=== PATIENT | female | born 1955 | race Caucasian/White ===

== ENCOUNTER → 2017-10-26 09:42 | Outpatient (CLI) | payer OTHER, SELFPAY ==
--- NOTE | 2017-10-26 09:47 | BI_ITS ---
MAMMOGRAPHY - BILATERAL SCREENING REASON FOR EXAM: Female, 62 years old. Routine annual screening examination. PERTINENT HISTORY: Sister with breast cancer. Mother with breast cancer. History of prior bilateral breast reduction surgery. TECHNIQUE: Digital bilateral breast kimo (3D mammographic acquisition) in the CC and MLO projections. 2-D mediolateral oblique (MLO) and craniocaudad (CC) views of both breasts were obtained. CAD: Full Field Digital Mammography with Computer Added Detection was performed. COMPARISON: Comparison is made with prior study dated May 30, 2016 and July 05, 2015. FINDINGS: Breast Composition: There are scattered areas of fibroglandular density. There are no dominant masses or suspicious calcifications. Since prior study, the patient underwent bilateral breast reduction surgery with resultant postoperative changes. No other significant abnormalities are identified. BI/SCREENING MAMM (CAD), BILAT IMPRESSION: Stable bilateral screening mammogram. Yearly follow-up mammogram recommended. (A) ASSESSMENT CATEGORY: BIRADS Category 2: Benign. A letter regarding these results will be sent to the patient by the facility within 30 days. Approximately 10% of breast cancers are not detected by mammography. A normal mammogram should not delay biopsy of a clinically suspicious abnormality. [id number] Electronically Signed: Miguel A Randle MD at 12:59 EDT Tel [phone], Service support ,
== END ==
PROVIDERS: Family Provider Family Medicine; PCP Family Medicine; Visit Provider Obstetrics & Gynecology
DX: Z12.31 Encounter for screening mammogram for malignant neoplasm of breast (principal)
CPT/HCPCS: 77063; 77067

== ENCOUNTER → 2018-11-13 08:10 | Outpatient (CLI) | payer OTHER, SELFPAY ==
--- NOTE | 2018-11-13 08:14 | BI_ITS ---
MAMMOGRAPHY - BILATERAL SCREENING REASON FOR EXAM: Female, 63 years old. Routine annual screening examination. PERTINENT HISTORY: Sister with breast cancer. Mother with breast cancer. History of bilateral breast reduction surgery as well as bilateral stereotactic breast biopsies. TECHNIQUE: Digital bilateral breast delmer (3D mammographic acquisition) in the CC and MLO projections. 2-D mediolateral oblique (MLO) and craniocaudad (CC) views of both breasts were obtained. CAD: Full Field Digital Mammography with Computer Added Detection was performed. COMPARISON: Comparison is made with prior study dated October 26, 2017 and May 30, 2016. FINDINGS: Breast Composition: There are scattered areas of fibroglandular density. There are no dominant masses or suspicious calcifications. Rim-like calcifications are seen in the retroareolar region of the right breast. This most likely represents postsurgical fatty necrosis. Focal rim-like calcification is also seen in the retroareolar region of the left breast. No other significant abnormalities are identified. BI/SCREEN MAMM (CAD) W/DELMER BILAT IMPRESSION: Stable bilateral screening mammogram. Yearly follow-up mammogram recommended. (A) ASSESSMENT CATEGORY: BIRADS Category 2: Benign. A letter regarding these results will be sent to the patient by the facility within 30 days. Approximately 10% of breast cancers are not detected by mammography. A normal mammogram should not delay biopsy of a clinically suspicious abnormality. [id number] Electronically Signed: Miguel A Randle, at 9:07 EDT , Service support ,
== END ==
PROVIDERS: Referring Provider Obstetrics & Gynecology; Visit Provider Obstetrics & Gynecology
DX: Z12.31 Encounter for screening mammogram for malignant neoplasm of breast (principal)
CPT/HCPCS: 77063; 77067

== ENCOUNTER → 2019-11-18 07:23 | Outpatient (CLI) | payer OTHER, SELFPAY ==
--- NOTE | 2019-11-18 07:25 | BI_ITS ---
MAMMOGRAPHY - BILATERAL SCREENING REASON FOR EXAM: Female, 64 years old. Routine annual screening examination. PERTINENT HISTORY: Sister with breast cancer. Mother with breast cancer. Prior bilateral breast reduction surgery and bilateral stereotactic breast biopsy TECHNIQUE: Digital bilateral breast delmer (3D mammographic acquisition) in the CC and MLO projections. 2-D mediolateral oblique (MLO) and craniocaudad (CC) views of both breasts were obtained. CAD: Full Field Digital Mammography with Computer Added Detection was performed. COMPARISON: Comparison is made with prior study dated November 13, 2018 and October 26, 2017. FINDINGS: Breast Composition: There are scattered areas of fibroglandular density. There are no dominant masses or suspicious calcifications. Stable rim-like calcification density seen in the retroareolar region of the right breast. This most likely represents postoperative changes with fatty necrosis. Tiny calcific nodular density also seen in the retroareolar region of the left breast. Annual focus of calcification is seen in the upper deep slightly lateral portion of the right breast. The patient will be recalled for additional views including compression magnification spot views. No other significant abnormalities are identified. BI/SCREEN MAMM (CAD) W/DELMER BILAT IMPRESSION: Essentially stable mammograms except for a focus of the microcalcifications in the slightly upper deep lateral portion of the right breast. The patient will be recalled for additional views. Recall Side: Right Breast ASSESSMENT CATEGORY: BIRADS Category 0: Incomplete. Need additional imaging evaluation. A letter regarding these results will be sent to the patient by the facility within 30 days. Approximately 10% of breast cancers are not detected by mammography. A normal mammogram should not delay biopsy of a clinically suspicious abnormality. [id number] Electronically Signed: Miguel A Randle, at 9:27 EDT , Service support ,
== END ==
PROVIDERS: PCP Nurse Practitioner Primary Care; Referring Provider Obstetrics & Gynecology; Visit Provider Obstetrics & Gynecology
DX: Z12.31 Encounter for screening mammogram for malignant neoplasm of breast (principal)
CPT/HCPCS: 77063; 77067

== ENCOUNTER → 2019-11-19 08:47 | Outpatient (CLI) | payer OTHER, SELFPAY ==
--- NOTE | 2019-11-19 08:51 | BI_ITS ---
MAMMOGRAPHY - UNILATERAL DIAGNOSTIC: RIGHT BREAST REASON FOR EXAM: Female, 64 years old. Abnormal screening mammograms for calcifications. PERTINENT HISTORY: Sister with breast cancer. Mother with breast cancer. TECHNIQUE: Magnification spot views of the right breast were painted. CAD: Full Field Digital Mammography with Computer Added Detection was performed. COMPARISON: Comparison is made with prior study dated November 18, 2019. FINDINGS: Breast Composition: There are scattered areas of fibroglandular density. The calcifications are once again seen in the upper deep slightly lateral portion of the right breast. A biopsy is recommended for further evaluation. No other significant abnormalities are identified. BI/DIAG MAMM W/CAD, UNILAT IMPRESSION: Persistent microcalcifications as described. A biopsy recommended. ASSESSMENT CATEGORY: BIRADS Category 0: Incomplete. Need additional imaging evaluation. A letter regarding these results will be sent to the patient by the facility within 30 days. Approximately 10% of breast cancers are not detected by mammography. A normal mammogram should not delay biopsy of a clinically suspicious abnormality. Electronically Signed: Miguel A Randle, at 10:32 EDT , Service support ,
== END ==
PROVIDERS: PCP Nurse Practitioner Primary Care; Referring Provider Obstetrics & Gynecology; Visit Provider Obstetrics & Gynecology
DX: R92.8 Other abnormal and inconclusive findings on diagnostic imaging of breast (principal)
CPT/HCPCS: 77065

== ENCOUNTER → 2020-01-06 09:24 | Outpatient (CLI) | payer OTHER, SELFPAY ==
--- NOTE | 2020-01-05 18:23 | HP.PCM_ITS ---
History and Physical Date of Admission: 01/06/20 Ranjana Garrett 1955 ? ? REFERRING PHYSICIAN: Marc Cagle MD ? CHIEF COMPLAINT: Mammogram Abnormality ? HPI: The patient is a 64 year old female with abnormal right breast mammograms. She denies palpable breast masses. Denies nipple discharge. Had bilateral breast reduction about 3 years ago. Had previous right and left needle core biopsies by US that were benign. Mother dx'd with breast cancer in her 60s, also sister with breast cancer, no ovarian cancer known in family. BRCA status in family unknown. ? Mammograms 11/17- Essentially stable mammograms except for a focus of the microcalcifications in the slightly upper deep lateral portion of the right breast. The patient will be recalled for additional views. IMPRESSION: Persistent microcalcifications as described. A biopsy recommended. ? ? PAST MEDICAL HISTORY: Elevated cholesterol ? ? PAST SURGICAL HISTORY Procedure Laterality Date ? SECTION HX ? 1977, 1979, 1981 ? KNEE SCOPE,AID ANT CRUCIATE REPAIR ? 1995 ? PAST SURGICAL HISTORY OF ? ? ? ACL repair left knee ? TOTAL ABDOM HYSTERECTOMY ? 2000 Bilateral breast reduction [place] teeth surgery Breast biopsy, needle core - right Breast biopsy, needle core - left ? ? Current Outpatient Medications Medication Sig ? pravastatin (PRAVACHOL) 20 mg tablet ? ? ? ALLERGIES: Sulfa (Sulfonamide Antibiotics) ? PERSONAL HISTORY: Social History ? Tobacco Use ? Smoking status: Never Smoker ? Smokeless tobacco: Never Used Substance Use Topics ? Alcohol use: Yes ? ? Alcohol/week: 1.7 standard drinks ? Drug use: No ? FAMILY HISTORY Problem Relation Age of Onset ? Breast Cancer Mother ? ? Dx. @ 56 @ 62 yrs from breast cancer ? ? REVIEW OF SYSTEMS: General - denies fevers, denies anorexia, denies weight loss Cardiovascular - denies chest pain, denies history of HI Pulmonary - denies shortness of breath, denies coughing up blood Gastrointestinal - denies abdominal pain, denies hematemesis, denies blood in stools Neurological - denies seizures, denies chronic numbness/weakness of extremities, denies chronic headaches Genitourinary - denies burning with urination, denies blood in urine Hematological - denies spontaneous/prolonged bleeding Skin - denies nonhealing skin wounds Musculoskeletal - no new muscle/bone pain Endocrine - denies diabetes, no thyroid problems Psychological ? denies hallucinations Obstetrical - menarche onset in 6th grade, , first at age 22, breast feeding 25 m, surgical menopause early 50s, denies any hormones use ? PHYSICAL EXAMINATION: General: The patient is 64 year old female, well nourished, well hydrated in no acute distress. The patient is oriented to time, place, and person. VITALS: Blood pressure 122/58, pulse 104, temperature 36.7 ?C (98 ?F), temperature source Temporal, resp. rate 18, weight 81.2 kg (179 lb), SpO2 96 %. There is no height or weight on file to calculate BMI. Head ? Normocephalic. EOM intact with sclera clear and no icterus noted. Wearing glasses. Mouth with mucus membranes moist. Neck - supple with no jugular venous distention noted. Trachea is midline. No carotid bruits noted. No thyroid enlargement or thyroid nodules detected. No masses noted. Chest/breast ? no asymmetry of breasts noted, no suspicious skin lesions noted, no nipple discharge and both nipples everted, no breast masses noted Lungs ? clear to auscultation. Normal breath sounds. No rales/rhonchi/wheezing noted. No labored breathing noted, such as retractions. No cough heard. Heart ? normal S1 and S2 auscultated. No rubs/clicks/murmurs noted. Regular rate. Abdomen ? soft and benign. Normal bowel sounds No abdominal bruits noted. Difficult to determine if any masses or organomegaly due to body habitus. Extremities ? no calf tenderness noted. No pitting edema noted. Skin ? normal skin integrity. Lymph ? no cervical adenopathy detected, no supraclavicular adenopathy detected, no axillary adenopathy detected Neurological ? gait normal, no focal deficits noted Psych ? calm and appropriate RADIOLOGIC STUDIES: As Noted ? ? IMPRESSION: abnormal right breast mammograms ? PLAN: I have discussed the above with the patient. I have reviewed the breast radiographs with the patient and pointed out the abnormalities discussed in the report. I have offered right breast stereotactic breast biopsy. I have explained the procedure to the patient. I have counseled the patient as to the risks of the procedure, including but not limited to: infection, bleeding, injury to any blood vessels/nerves, scar tissue, wound infections, complications of anesthesia, etc. ? the patient understands. The patient wishes to proceed. I have answered all questions to the patient?s satisfaction and the patient has no further questions. ? . Diagnoses: (R92.8) Abnormal mammogram (primary encounter diagnosis) Return to Clinic: The patient is instructed to follow-up with me after the procedure. ? ? ? Aliad Barr MD
--- NOTE | 2020-01-06 10:05 | BRBX_PTH ---
PATIENT: INA ZHANG LOC: [facility] U#:[id number] AGE/SX: 69/F ROOM: RE01/06/[address]: Dr. Alida Barr MD : 1955 BED: DIS: SPEC #: [id number] RECD: 01/06/20 10:32 STATUS: LITO MANGO #: [id number] LIAM: 01/06/20 10:[address]: Alida Barr DEPT: SURGICAL PATHOLOGY RECD BY: Harris Alberto ENTERED: 01/06/20 10:58 SP TYPE: BREAST BX OTHR DR: Love Carrillo, FIRST HELPER-C Tissues: Right breast, NOS Procedures: Surgery Specimen Level IV HEADER OPERATION: Right breast stereotactic needle core biopsy PRE-OP DIAGNOSIS: Right UOQ calcifications TISSUE SUBMITTED: Right breast tissue ISCHEMIC TIME: 2 minutes FIXATION TIME: 9.5 hours MICROSCOPIC DIAGNOSIS Right breast, upper outer quadrant calcifications, stereotactic needle core biopsy: Fibrocystic changes and focal florid intraductal hyperplasia without atypia. Focal fat necrosis, chronic inflammation, histiocytic reaction and dystrophic calcification. Negative for malignancy. See comment. JENNA:franco 01/07/20 COMMENT Calcifications are noted only in the area of inflammation. Correlation with clinical, radiologic findings and appropriate follow up are necessary. MICROSCOPIC DESCRIPTION Slides are reviewed. GROSS DESCRIPTION Received in fixative is one container labeled with the patient name and designated right breast. The specimen consists of multiple elongated fragments of howell-yellow fibroadipose tissue that in aggregate measure 5 x 3 x 0.3 cm. The entire specimen is submitted in two cassettes. / JENNA:franco 01/06/20 TC:5 CPT: 68952
--- NOTE | 2020-01-06 11:20 | PCM.OPRPT ---
Report of Operation Date of Procedure: 01/06/20 Pre-Operative Diagnosis: abnormal calcifications on right breast mammograms Post-Operative Diagnosis: same Surgery/Procedure Performed:: right stereotactic breast biopsy Description of Surgical Findings:: abnormal calcifications seen on right breast mammograms Type of Anesthesia:: Local - 1% xylocaine Specimen's removed: right breast tissue Estimated Blood Loss (mL): minimal Fluids Replaced: none Description of Procedure: After informed consent was given, the patient was brought into the Breast Biopsy suite. Appropriate time out protocol was followed. The patient was placed in the prone position on the stereotactic biopsy table. The patient?s right breast was then placed in the opening at the head of the biopsy table. A health program specialist compression mammogram was then obtained in the lateral view. The suspicious radiological lesion was thus identified. Stereo pictures of the lesion were then taken for XYZ coordinates. The Mammotome biopsy stylus was then positioned where it would be entering into the patient?s breast. The skin at this site was then cleansed with a surgical skin preparation. The skin and subcutaneous tissues at this site were then infiltrated with 1% xylocaine. A small skin incision was made with an 11 blade scalpel. The biopsy stylus was then positioned into the patient?s breast at the proper coordinates of depth. Using the Mammotome vacuum-assist device, several core samples of breast tissue were obtained. A specimen mammogram was the obtained. It revealed that the abnormal calcifications were within the specimen. I reviewed this personally and concluded that the tissue sampling was adequate. A hemostatic marker clip was then placed into the biopsy cavity and a health program specialist film revealed that it was properly deployed. The patient was then placed in the supine position and pressure was applied to the breast until no active bleeding was noted. Steristrips were applied to reapproximate the skin. A unilateral mammogram in the CC and MLO view were then taken which revealed that the marker clip was in the same area as the previous suspicious lesion. The patient tolerated the procedure well and was discharged from the Breast Biopsy suite in good condition. - Complications none noted
== END ==
PROVIDERS: PCP Nurse Practitioner Primary Care; Visit Provider Surgery
DX: R92.8 Other abnormal and inconclusive findings on diagnostic imaging of breast (principal)
CPT/HCPCS: 19081; 88305; J7050; A4648

== ENCOUNTER → 2021-01-04 12:28 | Outpatient (CLI) | payer MEDICARE, OTHER, SELFPAY ==
--- NOTE | 2021-01-04 12:32 | BI_ITS ---
MAMMOGRAPHY - BILATERAL SCREENING 3-D TOMOSYNTHESIS REASON FOR EXAM: Female, 65 years old. SCREENING PERTINENT HISTORY: No significant family history. TECHNIQUE: 2-D mammograms and 3-D Tomosynthesis of the breast (s) were performed. CAD was performed. COMPARISON: 11/18/2019 FINDINGS: The breast composition is composed of scattered fibroglandular density. Scattered benign calcifications are seen. No dense spiculated masses or suspicious microcalcifications are identified. No architectural distortion is identified. There is no skin thickening or retraction. There has been no significant change since the prior study. BI/SCRN MAMM (CAD)W/DELMER BILAT IMPRESSION: No mammographic signs of malignancy. Routine yearly mammograms recommended. ASSESSMENT CATEGORY: BIRADS Category 1: Negative. A letter regarding these results will be sent to the patient by the facility within 30 days. FOLLOW UP RECOMMENDATION: Yearly follow up mammogram recommended. (A) Approximately 10% of breast cancers are not detected by mammography. A normal mammogram should not delay biopsy of a clinically suspicious abnormality. Electronically Signed: Andrew Yi MD at 17:14 EDT Tel , Service support ,
== END ==
PROVIDERS: PCP Nurse Practitioner Primary Care; Referring Provider Obstetrics & Gynecology; Visit Provider Obstetrics & Gynecology
DX: Z12.31 Encounter for screening mammogram for malignant neoplasm of breast (principal)
CPT/HCPCS: 77063; 77067

== ENCOUNTER → 2022-04-18 | Outpatient (CLI) | payer MEDICARE, OTHER, SELFPAY ==
--- NOTE | 2022-04-18 09:15 | BI_ITS ---
MAMMOGRAPHY - BILATERAL SCREENING REASON FOR EXAM: Female, 66 years old. Routine annual screening examination. PERTINENT HISTORY: Sister with breast cancer. Mother with breast cancer. Prior bilateral breast reduction surgery and prior bilateral stereotactic breast biopsies. TECHNIQUE: Digital bilateral breast delmer (3D mammographic acquisition) in the CC and MLO projections. 2-D mediolateral oblique (MLO) and craniocaudad (CC) views of both breasts were obtained. CAD: Full Field Digital Mammography with Computer Added Detection was performed. COMPARISON: Comparison is made with prior study dated 01/04/2021 and 11/19/2019. FINDINGS: Breast Composition: The breasts are almost entirely fatty. There are no dominant masses or suspicious calcifications. Stable dystrophic calcification in the right axillary region. A tissue clip marker is seen in the slightly upper lateral aspect of the right breast. No other significant abnormalities are identified. There has been no significant change since the prior study. BI/SCRN MAMM (CAD)W/DELMER BILAT IMPRESSION: Stable bilateral screening mammogram. Yearly follow-up mammogram recommended. (A) ASSESSMENT CATEGORY: BIRADS Category 2: Benign. A letter regarding these results will be sent to the patient by the facility within 30 days. Approximately 10% of breast cancers are not detected by mammography. A normal mammogram should not delay biopsy of a clinically suspicious abnormality. [id number] Electronically Signed: Miguel A Randle MD at 10:39 EST ,
--- NOTE | 2022-04-18 09:24 | BD_ITS ---
STUDY: DUAL ENERGY X-RAY ABSORPTIOMETRY / DXA REASON FOR EXAM: Female, 66 years old. [id number] TECHNIQUE: Bone Mineral Density (BMD) measurements of lumbar spine and bilateral hips were obtained. COMPARISON: None. FINDINGS: Lumbar Spine (L1-L4): g/cm2 (0.804) / T-score (-2.2) / Z-score (-0.3) Findings are suggestive of osteopenia with a high fracture risk. Left Femur Total: g/cm2 (0.818) / T-score (-1.0) / Z-score (0.3) Left Femoral Neck: g/cm2 (0.772) / T-score (-0.7) / Z-score (0.9) Right Femur Total: g/cm2 (0.827) / T-score (-0.9) / Z-score (0.4) Right Femoral Neck: g/cm2 (0.817) / T-score (-0.3) / Z-score (1.3) BD/Dexa Bone Density Study IMPRESSION: The patient is considered osteopenic as outlined below according to World Jefe Organization (WHO) criteria with a high fracture risk. Reference Information: The T-score is the number of standard deviations above or below the standard which is normal for young adults at their peak bone mineral density. The World Health Organization (WHO) interprets the T-scores as follows: Above -1 Normal bone density Between -1 and -2.5 Osteopenia Equal to / or below -2.5 Osteoporosis As a practical clinical guideline, osteopenia may be graded as follows: Mild -1 through -1.5 Moderate -1.6 through -2.0 Severe -2.1 through -2.4 The Z-score is the number of standard deviations above or below age-matched controls. A Z-score of less than -1.5 would be considered abnormal. References: 1. NIH Osteoporosis and Related Bone Diseases www osteo.org 2. International Society for Clinical Densitometry www iscd.org 3. National Osteoporosis Foundation www nof.org Electronically Signed: Miguel A Randle MD at 12:15 EST ,
== END | disposition home or self-care (01) ==
LOC: OPBD 09:13
PROVIDERS: PCP Nurse Practitioner Primary Care; Referring Provider Nurse Practitioner Primary Care; Visit Provider Nurse Practitioner Primary Care
DX: M81.0 Age-related osteoporosis without current pathological fracture (principal); Z12.31 Encounter for screening mammogram for malignant neoplasm of breast
CPT/HCPCS: 77063; 77067; 77080

== ENCOUNTER → 2023-06-08 | Outpatient (CLI) | payer MEDICARE, OTHER, SELFPAY ==
--- NOTE | 2023-06-08 12:04 | BI_ITS ---
MAMMOGRAPHY - BILATERAL SCREENING REASON FOR EXAM: Female, 68 years old. Routine annual screening examination. PERTINENT HISTORY: Sister with breast cancer. Mother with breast cancer. History of prior bilateral breast reduction surgery as well as bilateral stereotactic breast biopsies. TECHNIQUE: Digital bilateral breast delmer (3D mammographic acquisition) in the CC and MLO projections. 2-D mediolateral oblique (MLO) and craniocaudad (CC) views of both breasts were obtained. CAD: Full Field Digital Mammography with Computer Added Detection was performed. COMPARISON: Comparison is made with prior study dated April 18, 2022 and January 04, 2021. FINDINGS: Breast Composition: The breasts are almost entirely fatty. There are no dominant masses or suspicious calcifications. Stable dystrophic calcification in the right periareolar region. A tissue clip marker from prior biopsy is seen in the upper lateral anterior portion of the right breast. No other significant abnormalities are identified. There has been no significant change since the prior study. BI/SCRN MAMM (CAD)W/DELMER BILAT IMPRESSION: Stable bilateral screening mammogram. Yearly follow-up mammogram recommended. (A) ASSESSMENT CATEGORY: BIRADS Category 2: Benign. A letter regarding these results will be sent to the patient by the facility within 30 days. Approximately 10% of breast cancers are not detected by mammography. A normal mammogram should not delay biopsy of a clinically suspicious abnormality. [id number] Electronically Signed: Miguel A Randle MD at 13:44 EST ,
--- OUTSIDE RECORDS SUMMARY | 2023-06-08 15:18 | XMS RPT_ITS | CCD ---
Author Name Unknown Address [address] [facility] [address] [place] [address] Organization [facility] Care Team Providers Care Drill Setup Operator Name Role Phone RAFAL NINA, DR WHIT Haq Primary Care Physician VIN MEDICAL EQUIPMENT REPAIR TECHNICIAN-DAMPER FITTER, DIYA S Primary Care Unava ilable [facility]OCK [employer]QUIP[employer] REPAIR TECHNICIAN-DAMPER FITTER, ELÍAS Attending Unavailabl e VIN MEDICAL EQUIPMENT REPAIR TECHNICIAN-DAMPER FITTER, DIYA S Primary Care Unava ilable [facility] [employer] EQUIPMENT REPAIR TECHNICIAN-DAMPER FITTER, ELÍAS Attending Unavailabl e VIN MEDICAL EQUIPMENT REPAIR TECHNICIAN-DAMPER FITTER, DIYA S Primary Care Physicia n Allergies Allergy Classification Reported Allergen(s) Allergy Type Date of Onset Reaction(s) Facility (1 source) Sulfonamides (Antibiotic); Translations: [sulfa drugs] Drug allergy Eruption of skin (disorder) [facility] (1 source) Sulfonamide; Translations: [sulfa drugs] Drug allergy Eruption of skin (disorder) [facility] Medications Current Medications Medication Drug Class(es) Dates Sig (Normalized) Sig (Original) Advil PM Liqui-Gels 25 mg-200 mg oral capsule (1 source) Start: 01-12-2022 take 1 capsule by mouth once daily at bedtime as needed Advil PM Liqui-Gels 25 mg-200 mg oral capsule Dose = 2 cap(s), Oral, qHS, PRN for insomnia, # 16 cap(s), 0 Refill(s) Start Date: 01/12/22 Status: Ordered biotin 5 mg oral capsule (1 source) Start: 01-12-2022 biotin 5000 mcg oral caps 0 Refill(s) Start Date: 01/12/22 Status: Ordered ciprofloxacin 500 mg oral tablet (1 source) Quinolone Antimicrobial Start: 06-01-2023 End: 06-11-2023 ciprofloxacin 500 mg oral tablet Dose : 500 mg = 1 tab(s), Oral, q12h, for diverticulitis, X 10 day(s), # 20 tab(s), 0 Refill(s), 06/11/23 3:31:00 PM EST, Pharmacy: [facility], 157, cm, 05/31/23 15:05:00 EST, Height, 82, kg, 05/31/23 15:05:00 EST, Dosing Weight Start Date: 06/01/23 Stop Date: 06/11/23 Status: Ordered 2 ml dupilumab 150 mg/ml prefilled syringe (2 sources) Interleukin-4 Receptor alpha Antagonist Start: 01-12-2022 Dupixent 300 mg/2 mL subcutaneous solution 2 times a month, 0 Refill(s) Start Date: 01/12/22 Status: Ordered fluticasone propionate 0.05 mg/actuat metered dose nasal spray (1 source) Corticosteroid Start: 06-06-2022 take 1 dose nasal route twice daily Flonase 50 mcg/inh nasal spray Dose = 2 spray(s), Nostril, each, BID, # 16 gram(s), 0 Refill(s), Pharmacy: [facility], Acute sinusitis, 157, cm, 06/06/22 8:37:00 EST, Height Start Date: 06/06/22 Status: Ordered metroNIDAZOLE 500 mg oral tablet (1 source) Nitroimidazole Antimicrobial Start: 06-01-2023 End: 06-11-2023 metroNIDAZOLE 500 mg oral tablet Dose : 500 mg = 1 tab(s), Oral, q8h, for diverticulitis, X 10 day(s), # 30 tab(s), 0 Refill(s), 06/11/23 3:29:00 PM EST, Pharmacy: [facility], 157, cm, 05/31/23 15:05:00 EST, Height, 82, kg, 05/31/23 15:05:00 EST, Dosing Weight Start Date: 06/01/23 Stop Date: 06/11/23 Status: Ordered Vitamin D3 (1 source) Start: 01-12-2022 Vitamin D3 qDay, 25mcg daily, 0 Refill(s) Start Date: 01/12/22 Status: Ordered Problems Problem Classification Problem Date Documented Da te Episodic/Chronic Malaise and fatigue (2 sources) Fatigue 01-12-2022 Episodic Other lower respiratory disease (2 sources) Snoring 01-12-2022 Episodic Other screening for suspected conditions (not mental disorders or infectious disease) (2 sources) Mammography abnormal 11-25-2019 Episodic Residual codes; unclassified (1 source) Sleep apnea 02-08-2022 Chronic Unclassified (8 sources) Patient encounter status 11-25-2019 Results Test Name Value Interpretation Reference Range Facil ity Encounters Encounter Date Encounter Type Care Provider Facility Start: 06-01-2023 End: 06-02-2023 ambulatory DIYA BANUELOS MEDICAL EQUIPMENT REPAIR TECHNICIAN-DAMPER FITTER Facility:B Start: 06-01-2023 End: 06-01-2023 Patient encounter procedure ELÍAS PÉREZ MEDICAL EQUIPMENT REPAIR TECHNICIAN-DAMPER FITTER [facility] Start: 05-31-2023 End: 06-01-2023 ambulatory DIYA BANUELOS MEDICAL EQUIPMENT REPAIR TECHNICIAN-DAMPER FITTER Facility:B Start: 01-13-2022 End: 01-13-2022 Patient encounter procedure DIYA BANUELOS MEDICAL EQUIPMENT REPAIR TECHNICIAN-DAMPER FITTER [facility] Procedures Date Procedure Procedure Detail Performing Clinician section DIYA SCHROEDER MEDICAL EQUIPMENT REPAIR TECHNICIAN-DAMPER FITTER Immunizations Immunization Date Immunization Notes Care Provider Fa mercedes 04-14-2022 influenza virus vaccine, unspecified formulation ELÍAS PÉREZ MEDICAL EQUIPMENT REPAIR TECHNICIAN-DAMPER FITTER [facility] 02-18-2021 influenza virus vaccine, unspecified formulation DIYA BANUELOS MEDICAL EQUIPMENT REPAIR TECHNICIAN-DAMPER FITTER [facility] 09-09-2020 SARS-CoV-2 mRNA (tozinameran) vaccine DIYA BANUELOS MEDICAL EQUIPMENT REPAIR TECHNICIAN-DAMPER FITTER [facility] Payers Date Payer Category Payer Medicare [id number] 2023 Unknown [id number] 1955 Unknown [id number] 1955 Unknown [id number] Social History Date Type Detail Facility Start: 11-25-2019 Tobacco smoking status Never s moked tobacco (finding) [facility] Sex Assigned At Sex [facility] Clinical Note 06-01-2023 Note Date & Type Note Facility 06-01-2023 Note ORIGINAL HISTORY: Abdominal pain COMPARISON: No TECHNIQUE: CT of the Abdomen and Pelvis following uncomplicated administration of intravenous and oral contrast, with sagittal and coronal reconstructions. This exam was performed according to our departmental dose optimization program, and includes the following measures where applicable: automated exposure control, adjustment of the mAs and/or kVp according to patient size and/or exam, and an iterative reconstruction algorithm. FINDINGS: There is a small hiatal hernia. The abdominal organs are unremarkable in appearance. There is diverticulosis. There is bowel wall thickening and mild inflammatory change around the junction of the descending and proximal sigmoid colon. A normal appendix is identified. There is no discrete fluid collection there is no free fluid. IMPRESSION: Mild acute diverticulitis. Interpreted by: Opal Fernandez MD Preliminary Report By: Opal Fernandez MD Electronically signed By Opal Fernandez MD Dictated Date: 06/01/2023 11:28:49 AM Prelim Date: 06/01/2023 11:31:22 AM Sign Date: 06/01/2023 11:31:22 AM Ordering Provider: [facility] Evaluation + Plan note 01-12-2022 Radiology Note Date & Type Note Facility 01-12-2022 Evaluation + Plan note Future Scheduled TestsMA Mammo Screening Bilateral w/ Cuauhtemoc 01/12/22BD Bone Density DEXA Axial Skeleton 01/12/22 [facility] Progress note 07-19-2020 Note Date & Type Note Facility 07-19-2020 Note HNO ID: [id number] Author: Alida Barr Service: ? Author Type: Physician Type: Progress Notes Filed: 07/21/2020 4:24 PM Note Text: Ranjana Zhang 1955 REFERRING PHYSICIAN: Alida Barr MD CHIEF COMPLAINT: MAMMOGRAM FOLLOW UP HPI: The patient is a 65 year old female is s/p right stereotactic breast biopsy done on 01/06/2020 Pathology revealed: Right breast, upper outer quadrant calcifications, stereotactic needle core biopsy: Fibrocystic changes and focal florid intraductal hyperplasia without atypia. Focal fat necrosis, chronic inflammation, histiocytic reaction and dystrophic calcification. Negative for malignancy. She denies palpable breast masses. She denies nipple discharge. She denies breast pain. She had follow up mammograms - Mammograms 07/13/2020 - no mammographic evidence of malignancy. Return to annual mammogram screening schedule is recommended PAST MEDICAL HISTORY Diagnosis Date - Breast calcifications on mammogram 01/06/2020 right PAST SURGICAL HISTORY Procedure Laterality Date - SECTION HX 1977, 1979, 1981 - KNEE SCOPE,AID ANT CRUCIATE REPAIR 1995 - PAST SURGICAL HISTORY OF ACL repair left knee - STEREOTACTIC LOCALIZATION BREAST BIOPSY Right 01/06/2020 - TOTAL ABDOM HYSTERECTOMY 2000 Current Outpatient Medications Medication Sig - pravastatin (PRAVACHOL) 20 mg tablet ALLERGIES: Sulfa (Sulfonamide Antibiotics) PERSONAL HISTORY: Social History Tobacco Use - Smoking status: Never Smoker - Smokeless tobacco: Never Used Substance Use Topics - Alcohol use: Yes Alcohol/week: 1.7 standard drinks - Drug use: No FAMILY HISTORY Problem Relation Age of Onset - Breast Cancer Mother Dx. @ 56 @ 62 yrs from breast cancer REVIEW OF SYSTEMS: General - denies fevers, denies anorexia, denies weight loss Cardiovascular - denies chest pain, denies history of NC Pulmonary - denies shortness of breath, denies coughing up blood Gastrointestinal - denies abdominal pain, denies hematemesis, denies blood in stools Neurological - denies seizures, denies chronic numbness/weakness of extremities, denies chronic headaches Genitourinary - denies burning with urination, denies blood in urine Hematological - denies spontaneous/prolonged bleeding Skin - denies nonhealing skin wounds Musculoskeletal - no new muscle/bone pain Endocrine - denies diabetes, no thyroid problems Psychological ? denies hallucinations Obstetrical - menarche onset in 6th grade, , first at age 22, breast feeding 25 m, surgical menopause early 50s, denies any hormones use PHYSICAL EXAMINATION: General: The patient is 65 year old female, well nourished, well hydrated in no acute distress. The patient is oriented to time, place, and person. VITALS: Pulse 101, temperature 36.7 ?C (98 ?F), temperature source Tympanic, weight 78.5 kg (173 lb), SpO2 94 %. Head ? Normocephalic. EOM intact with sclera clear and no icterus noted. Wearing glasses. Neck - supple with no jugular venous distention noted. Trachea is midline. No carotid bruits noted. No thyroid enlargement or thyroid nodules detected. No masses noted. Chest/breast ? no asymmetry of breasts noted, no suspicious skin lesions noted - well healed bilateral breast reduction incisional sites noted, no nipple discharge and both nipples everted, no breast masses noted Lungs ? clear to auscultation. Normal breath sounds. No rales/rhonchi/wheezing noted. No labored breathing noted, such as retractions. No cough heard. Heart ? normal S1 and S2 auscultated. No rubs/clicks/murmurs noted. Regular rate. Abdomen ? soft and benign. Normal bowel sounds No abdominal bruits noted. . Extremities ? no calf tenderness noted. No pitting edema noted. Skin ? normal skin integrity. Lymph ? no cervical adenopathy detected, no supraclavicular adenopathy detected, no axillary adenopathy detected Neurological ? gait normal, no focal deficits noted Psych ? calm and appropriate RADIOLOGIC STUDIES: As Noted Assessment IMPRESSION: history of intraductal hyperplasia of right breast without atypia PLAN: I have discussed the above with the patient. I have reviewed the past mammograms and pathology of this patient. I have reassured patient that she has no clinical evidence of breast malignancy at this point in time. I recommend continued yearly screening mammograms and physical examinations by her primary physician. Follow up with me if any worsening signs/symptoms. Patient agrees with the above plan. I have answered all questions to the patient?s satisfaction and the patient has no further questions. Greater than 50% of this patient encounter was spent in discussion of the above with the patient and also I have reviewed the patient's mammograms and past pathology report. Total time spent was 20 minutes with regard to the patient's encounter. . Diagnoses: (N60.91) Intr (more content not included)... [facility] Progress note 07-13-2020 Note Date & Type Note Facility 07-13-2020 Note HNO ID: [id number] Author: Albina (Agusto García Service: ? Author Type: Relay Tester Type: Progress Notes Filed: 07/13/2020 10:33 AM Note Text: Radiology Service Progress Note PATIENT NAME: Ranjana Zhang DATE OF SERVICE: July 13, 2020 TIME: 10:33 AM PATIENT IDENTITY VERIFICATION COMPLETED USING TWO (2) IDENTIFIERS: Name and Date of confirmed by patient verbally. FALL SCREENING: Has the patient had 2 falls in the last year or 1 fall with injury or currently using an Ambulatory Assistive Device (Walker, Cane, Wheelchair, Crutches, etc.)? No PATIENT GENDER DATA: Female. status: : No status: NO. PATIENT RELEVANT IMPLANT DATA REVIEWED: Not Applicable RADIOLOGY DEPARTMENT: Mammography PERIPHERAL IV DATA: Not applicable SIGNED BY: Agusto Singleton July 13, 2020 10:33 AM [facility] Evaluation + Plan note Note Date & Type Note Facility Evaluation + Plan note Future Appointments Appointment Date:06/05/2023 10:00:00 AM Scheduled Provider:DIYA BANUELOS Location:[facility] Appointment Type:PC Wellness Medicare Appointment Date:08/07/2023 10:00:00 AM Scheduled Provider:PADILLA LEWIS Location:[facility] Appointment Type:PC OV Follow Up [facility] Hospital course Narrative Note Date & Type Note Facility Hospital course Narrative No data available for this section [facility] Hospital Discharge instructions Note Date & Type Note Facility Hospital Discharge instructions No data available for this section [facility] Progress note Note Date & Type Note Facility Progress note No data available for this section [facility] Summary Purpose Family History No Family History Records FoundNo Family History Records Found No data available for this section Advance Directives No Advanced Directives Records FoundNo Advanced Directives Records Found Additional Source Comments INFORMATION SOURCE (unrecogn ized section and content) DATE CREATED AUTHOR AUTHOR'S ORGANIZ ATION 06/02/2023 [facility] Care Team (unrecognized sect ion and content) Care Team Personnel Name: WHIT LYLES MD [facility] [place] Service: -[facility] Member Role: Primary Care Physician Address: Address: [address] [place] [address] Care Team Related Persons Name: OPAL ZHANG Address: Home [address] [place] [address] [phone] [place] Patient Care team informatio n (unrecognized section and content) Care Team Personnel Name: DIYA BANUELOS MEDICAL EQUIPMENT REPAIR TECHNICIAN-DAMPER FITTER Position: P4 [employer]pper Member Role: Primary Care Physician Address: Address: [address] [place] [address] Care Team Related Persons Name: OPAL ZHANG Address: Home [address] [place] [address] [phone] [place] FOR RECORDS PERTAINING TO PATIENTS WHO ARE OR HAVE BEEN ENROLLED IN A CHEMICAL DEPENDENCY/SUBSTANCEABUSE PROGRAM, SOME INFORMATION MAY BE OMITTED. This clinical summary was aggregated from multiple sources. Caution should be exercised in using it in the provision of clinical care. This summary normalizes information from multiple sources, and as a consequence, information in this document may materially change the coding, format and clinical context of patient data. In addition, data may be omitted in some cases. CLINICAL DECISIONS SHOULD BE BASED ON THE PRIMARY CLINICAL RECORDS. [facility] [employer] [facility]. provides no warranty or guarantee of the accuracy or completeness of information in this document.
== END | disposition home or self-care (01) ==
LOC: OPBI 12:03
PROVIDERS: PCP Nurse Practitioner Primary Care; Referring Provider Nurse Practitioner Primary Care; Visit Provider Nurse Practitioner Primary Care
DX: Z12.31 Encounter for screening mammogram for malignant neoplasm of breast (principal)
CPT/HCPCS: 77063; 77067

== ENCOUNTER → 2024-06-09 | Outpatient (CLI) | payer MEDICARE, OTHER, SELFPAY ==
--- NOTE | 2024-06-09 10:01 | BI_ITS ---
PROCEDURE: SCRN MAMM (CAD)W/DELMER BILAT REASON FOR EXAM: F, Age 69 y/o , presents for annual screening mammogram. TECHNIQUE: Bilateral screening digital breast tomosynthesis with 2D and 3D images. Computer aided detection. COMPARISON: 06/08/2023. FINDINGS: There are scattered areas of fibroglandular density. No suspicious masses, areas of developing architectural distortion, or suspicious calcifications. BI/SCRN MAMM (CAD)W/DELMER BILAT IMPRESSION: There is no evidence of malignancy in either breast. BI-RADS 1: NEGATIVE. RECOMMEND ANNUAL MAMMOGRAPHIC SCREENING. Follow-up code: Routine Follow-up. The patient will be notified of the results by letter. Reading Location: [id number]
== END | disposition home or self-care (01) ==
LOC: OPBI 10:00
PROVIDERS: PCP Nurse Practitioner Primary Care; Referring Provider Nurse Practitioner Primary Care; Visit Provider Nurse Practitioner Primary Care
DX: Z12.31 Encounter for screening mammogram for malignant neoplasm of breast (principal)
CPT/HCPCS: 77063; 77067

== ENCOUNTER → 2024-07-08 | Outpatient (CLI) | payer MEDICARE, OTHER, SELFPAY ==
--- NOTE | 2024-07-08 08:55 | BD_ITS ---
PROCEDURE: DEXA BONE DENSITY STUDY REASON FOR EXAM: None provided. TECHNIQUE: DEXA scan of the lumbar spine and both hips. COMPARISON: 04/18/2022. FINDINGS: T-SCORES Lumbar spine, L1-L4: 0.794 g per cm2 (-2.3); Previously:-2.2 Left total hip: 0.756 g per cm2 (-1.5); Previously: -1.0 Right total hip: 0.794 g per cm2 (-1.2); Previously: -0.9 FRAX* Results: 10 Year Probability of Fracture: Hip Fracture(1): 0.8% Major Osteoporotic Fracture(2): 8.3% *FRAX is a trademark of the [employer] [place] for Metabolic Bone Disease, World Health Organization (WHO) Collaborating [place]. 1-The 10-year probability of fracture may be lower than reported if the patient has received treatment. 2-Major Osteoporotic Fracture: Clinical Spine, Forearm, Hip or Shoulder. The T-scores are also available for review on the [facility] PACS or by accessing the [facility] electronic medical record. BD/Dexa Bone Density Study IMPRESSION: 1. The patient has osteopenic bone mineral density. 2. Since 04/18/2022, there has been a decrease of 0.062 g per cm2, 7.5%, in the bone mineral density of the left hip. 3. Additional description including FRAX as above. Reading Location: [facility]
== END | disposition home or self-care (01) ==
LOC: OPBD 08:49
PROVIDERS: PCP Nurse Practitioner Primary Care; Referring Provider Nurse Practitioner Primary Care; Visit Provider Nurse Practitioner Primary Care
DX: Z13.820 Encounter for screening for osteoporosis (principal); M85.88 Other specified disorders of bone density and structure, other site
CPT/HCPCS: 77080

== ENCOUNTER 2024-08-20 09:00 | Outpatient (RCR) | payer MEDICARE, OTHER, SELFPAY ==
--- NOTE | 2024-08-05 15:12 | HP.PTEVAL ---
Patient's Visit Information Visit Information Visit Information: INA ZHANG is a 69 year old F referred to Physical Therapy by GENOVEVA JONES with a diagnosis of MEDIAL & LATERAL ARTHROSCOPIC MENISECTOMY LEFT KNEE 07/16/24. Date of Evaluation: 08/05/24 Physical Therapist: Tia Ferreira PT, Cert MDT Visit Plan Frequency: 2x /Week Duration: 6-8 WKS Plan: LLE ROM, STRETCHING AND STRENGTHENING TO HELP MEET SET GOALS. CORE STRENGTHENING STARTING WITH NEUTRAL SPINE. INSTRUCTION IN PROPER POSTURE CONTROL AND BODY MECHANICS FOR BENDING, LIFTING AND SITTING ALONG WITH EXERCISE AND GAIT. MODALITIES NEEDED FOR PAIN AND SWELLING. HEP. Subjective Subjective: Work/Leisure: RETIRED. LIKES TO WALK FOR EXERCISE. HAS A WALKING PAD AT HOME AND WALKS OUTSIDE TOO. Present symptoms: MILD LEFT KNEE PAIN ON THE TOP AND DOWN THE SIDES A LITTLE BIT. DENIES NUMBNESS AND TINGLING. Present since: ABOUT 2.5 MONTHS BEFORE SURGERY. Pain Scale: WORST 4/10, LEAST 0/10 Currently: 1/10 Is it getting better, worse or staying the same: GETTING BETTER Commenced as a result of: NOT SURE WHAT HAPPENED BUT THE PAIN STARTED WALKING IN THE [place] IN [place]. Symptoms at onset: L KNEE PAIN AND SOME SWELLING WITH WALKING Worse: STEPS (LIVES IN 2 STORY WITH MASTER BR ON MAIN FLOOR AND STORAGE IN BASEMENT, 3 STEPS INTO HOUSE FROM GARAGE), PROLONGED WALKING, CAN'T SIT DIANE/CROSS, TRYING TO PUSH UP ON LLE TO GET UP FROM FLOOR. PROLONGED STANDING. Better: ICE, ADVIL Disturbed sleep: FEELS IT IF TURNS OVER - NOT A BIG DEAL - GOES RIGHT BACK TO SLEEP. Previous history/Previous treatment: ACL REPAIR 1996 AND cartilage/meniscus repair 2004 in the past - this is 3rd surgery. Treatment this episode: MEDIAL AND LATERAL ARTHROSCOPIC MENISECTOMY LEFT KNEE 07/16/24 Gait: TIME AND DISTANCE LIMITED. NOT USING ANY AD'S. PMH/Recent major surgery: LUMBAR BULGING DISC/DDD - CURRENTLY SEEING A CHIROPRACTOR. H/O R KNEE SURGERY Objective Objective: Sitting/Standing Posture: ANTERIOR PELVIC TILT. FH. ROUNDED SHOULDERS. L SHLD LEVEL HIGHER THAN R IN STANDING AND SITTING. NO RELEVANT LATERAL LUMBAR SHIFT. Active Correction of posture: NE Other Observations: INDEP GAIT INTO PT WITHOUT AD OR LOB WITH MILD LIMP ON R LE. WEARING L KNEE SLEEVE BECAUSE MAKES IT FEEL MORE STABLE. Sensory deficit: LLE LIGHT TOUCH SENSATION GROSSLY INTACT. ROM deficit: L KNEE AROM IN SUPINE: 0-0-88 DEG FLEXION. Motor deficit: HIP FLEX R 21.9, L 16 LBS, KNEE EXT R 39.9, L 18.1 LBS, KNEE FLEX R 43.8, L 15.8 LBS, ANKLES 5/5 BRADEN. Lumbar mvmt loss: flex - NIL ext - MOD R SG - MOD L SG - MOD PATIENT REPORTS LOW BACK TIGHTNESS BUT DENIES PAIN WITH LUMBAR ROM TESTING TODAY. Core strength: POOR TO FAIR. Palpation: MILD L KNEE EDEMA COMPARED TO R. Balance/Special Test Scores Lower Extremity Functional Score: 38 Goals Goal 1:: PATIENT WILL HAVE DECREASED EDEMA IN LLE SYMMETRICAL TO RLE. Goal Time Frame: 6-8 Weeks Goal 2:: PATIENT WILL HAVE INCREASED L KNEE ROM TO AT LEAST 0-120+ DEG FLEXION. Goal Time Frame: 6-8 Weeks Goal 3:: PATIENT WILL HAVE INCREASED LLE STRENGTH TO WITHIN 80% OF RLE THROUGHT ALLOWING FOR INCREASED STABILITY WITH ALL WT BEARING ACTIVITIES. Goal Time Frame: 6-8 Weeks Goal 4:: PATIENT WILL BE ABLE TO NEGOTIATE STEPS WITH 1 HR WITH RECIPROCAL PATTERN WITHOUT LIMITATIONS. Goal Time Frame: 6-8 Weeks Goal 5:: PATIENT WILL BE ABLE TO DEMO INDEP FLOOR TRANSFERS PUSHING UP WITH LLE Goal Time Frame: 6-8 Weeks Goal 6:: INDEP HEP Goal Time Frame: 6-8 Weeks Rehabilitation Potential Physical Therapy Diagnosis: LLE STIFFNESS AND WEAKNESS Rehabilitation Potential: Good Anticipated Interventions Patient/Client Instruction: Educate patient on: Condition, Plan of Care and Risk Factors For the Purpose of:: To improve self management Therapeutic Exercise to Include: Strength training, Body mechanics, Postural training, Flexibilty training, Gait and locomotor training, Neuromotor development, In an aquatic setting, Passive ROM, Active ROM and Dynamic Lumbar Stabilization For the Purpose of:: To decrease pain, To increase ROM, To improve muscle performance and motor function, To improve ability to perform ADL's, To increase tolerance to activity/condition/position, To improve ability of physical actions for home/community/work/leisure, To improve gait and locomotor functions, To decrease soft tissue restriction, To increase flexibility/ROM and To improve self management Cryotherapy (ice pack, ice massage): Yes For the Purpose of:: To decrease pain and To decrease swelling/inflammation Text: Thank you for the opportunity to evaluate your patient. For Medicare and Medicare HMO plans, please review the plan of care and approve it. It will need to be FAXED BACK to us at [phone] for Medicare purposes. For Medicare only, by signing this I certify the plan of care. Please let me know if there are questions or concerns regarding this plan of care. Physician Signature: Date:
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
== END 2024-08-20 10:24 | disposition home or self-care (01) ==
LOC: PT 09:00
PROVIDERS: PCP Nurse Practitioner Primary Care; Referring Provider Nurse Practitioner Family; Visit Provider Nurse Practitioner Family
DX: S83.242D Other tear of medial meniscus, current injury, left knee, subsequent encounter (principal); Z98.890 Other specified postprocedural states
CPT/HCPCS: 97110; 97162; 97530